=== PATIENT | female | born 1960 | race Caucasian/White ===

== ENCOUNTER 2018-07-23 15:57 | Inpatient (IN) | payer BC ==
[2018-07-23] MEDS ORDERED: Ondansetron 4 MG/2 ML SDV IVPUSH PRN (16:59)
[2018-07-23] MEDS ORDERED: Lactated Ringers 1,000 ML IV ONE (17:00)
[2018-07-23] MEDS ORDERED: MVI, Adult with Vitamin K 10 ML, Magnesium Sulfate 2 GM, Folic Acid 1 MG, Thiamine 100 ... IV ONE ×5 (18:00)
[2018-07-23] MEDS: Pantoprazole 40 MG Vial IV SCH (18:17)
[2018-07-23] MEDS: Dextrose 5%-Lactated Ringers 1,000 ML IV SCH (20:32)
[2018-07-23] MEDS ORDERED: buPROPion 150 MG Tab.SR PO SCH (21:00)
[2018-07-24] MEDS: Dextrose 5%-Lactated Ringers 1,000 ML IV SCH (06:23)
[2018-07-24] MEDS ORDERED: Escitalopram 10 MG Tab PO SCH (09:00)
[2018-07-24] MEDS: Potassium Phosphates 15 MMOLE in Sodium Chloride 0.9% 250 ML IV SCH ×2 (10:41→19:34)
--- NOTE | 2018-07-24 11:06 | PN ---
DATE OF SERVICE: 07/24/2018 SUBJECTIVE: Bernadette was admitted last evening for severe malnutrition, low albumin. She is on a step 4 gastric bypass diet. Oral intake was 500. Urine output 1550. She ate 75% of her dinner. Vital signs have been stable. Denies any pain. Labs this morning revealed a hemoglobin of 11.4, potassium is 3.5, phosphorus 3, BNP is 220, albumin 1.3, and total protein 3.8. REVIEW OF SYSTEMS: Remainder of review of systems negative for any pertinent positives and negatives. OBJECTIVE: GENERAL: Bernadette Maza is a 57-year-old female, alert, orientated, color pale. VITAL SIGNS: TPR 98, 58, 18, blood pressure 97/46. HEENT: Negative. NECK: Supple. HEART: Regular rate and rhythm. LUNGS: Clear. ABDOMEN: Soft and nontender. Midline abdominal incision noted. EXTREMITIES: Revealed 2+ peripheral edema. SCDs were not put on as ordered yesterday on admission. ASSESSMENT: 1. Severe protein-calorie malnutrition. 2. Dehydration. 3. Hypoalbuminemia due to protein-calorie malnutrition, postsurgical malabsorption not classified elsewhere. Please chronologically order these. SP Tanvir-en-Y gastric bypass surgery revision in 2013, vitamin B12 deficiency, vitamin B complex deficiency, vitamin D deficiency. 4. Depression. 5. Marked peripheral edema. PLAN: 1. Schedule and have consent signed for laparoscopic possible open, placement of percutaneous gastrostomy tube with general anesthesia and TAP block, scheduled for on 07/25/2018. Case to follow Federico Morgan MD; n.p.o. after midnight. Rx Levaquin 500 mg IV chief controller to OR. 2. Albumin 50 g IV today. 3. Wrap legs from toes to thigh with Kerlix. 4. K-Phos 45 millimoles IV. 5. Discontinue Wellbutrin. 6. Glucerna a protein supplement oral 3 times a day between meals. 7. Check CBC, CMP, mag, phos, and BNP in a.m. 8. Good pulmonary toilet. 9. N.p.o. After midnight. 10.We will evaluate p.r.n. or in a.m. Yecenia Stanton PA-C /[id number]
[2018-07-24] MEDS: Pantoprazole 40 MG Vial IV SCH (18:51)
[2018-07-24] MEDS: Escitalopram 10 MG Tab PO SCH (21:23)
[2018-07-25] MEDS: Potassium Phosphates 15 MMOLE in Sodium Chloride 0.9% 250 ML IV SCH (02:30)
[2018-07-25] MEDS: Dextrose 5%-Lactated Ringers 1,000 ML IV SCH ×3 (06:11→23:26)
--- NOTE | 2018-07-25 07:16 | PN ---
DATE OF SERVICE: 07/25/2018 SUBJECTIVE: Bernadette is n.p.o. Consents are signed for surgery. Federico Morgan MD explained surgery to the patient including possible risks and complications. Bernadette Maza verbalized understanding. REVIEW OF SYSTEMS: Negative for any new pertinent positives and negatives. Oral intake 940. Urine output 3100. She consumed 100% of breakfast, 50% of lunch and 75% of dinner. LABORATORY DATA: Hemoglobin 9.3, hematocrit 28.8, albumin 2 up from 1.3. She received 50 g of albumin IV yesterday. BNP 401 up from 220 yesterday. OBJECTIVE: GENERAL: Bernadette Maza is a 57-year-old female. VITAL SIGNS: Height is 5 feet 4 inches. Weight is 190 pounds. TPR is 97.2, 65, 16, and blood pressure 93/54. HEENT: Negative. NECK: Supple. HEART: Regular rate and rhythm. LUNGS: Clear. ABDOMEN: Negative. EXTREMITIES: Trace peripheral edema. SCDs are on. ASSESSMENT: 1. Severe protein-calorie malnutrition. 2. Dehydration, resolving. 3. Hypoalbuminemia due to protein-calorie malnutrition. Albumin 1.2 on admission. 4. Postsurgical malabsorption classified elsewhere. 5. SP Tanvir-en-Y gastric bypass surgery. 6. Revision of Tanvir-en-Y gastric bypass surgery 2013. 7. Vitamin B deficiency. 8. Vitamin B complex deficiency. 9. Vitamin D deficiency. 10.Depression. 11.Marked peripheral edema. PLAN: Orders to be written postoperatively. Yecenia Stanton PA-C /[id number]
[2018-07-25] MEDS ORDERED: Levofloxacin/Dextrose 5%-Water 500 MG in Premix Bag 1 BAG IV ONE (09:00)
[2018-07-25] MEDS ORDERED: fentaNYL 250 MCG/5 ML SDV ONE (11:09)
[2018-07-25] MEDS ORDERED: Neostigmine Methylsulfate 1 MG/ML 5 ML Syringe ONE (11:10)
[2018-07-25] MEDS ORDERED: Glycopyrrolate 0.2 MG/ML 5 ML MDV ONE (11:10)
[2018-07-25] MEDS ORDERED: Rocuronium 50 MG/5 ML Vial ONE (11:10)
[2018-07-25] MEDS ORDERED: Succinylcholine 200 MG/10 ML MDV ONE (11:10)
[2018-07-25] MEDS ORDERED: Propofol 200 MG/20 ML SDV ONE (11:10)
[2018-07-25] MEDS ORDERED: Dexamethasone 4 MG/ML SDV ONE (11:10)
[2018-07-25] MEDS ORDERED: Ondansetron 4 MG/2 ML SDV ONE (11:10)
[2018-07-25] MEDS ORDERED: Lactated Ringers 1,000 ML ONE (11:28)
[2018-07-25] MEDS ORDERED: Furosemide 20 MG/2 ML VIAL ONE (11:44)
[2018-07-25] MEDS: Pantoprazole 40 MG Vial IV SCH (18:23)
[2018-07-25] MEDS: Escitalopram 10 MG Tab PO SCH (20:07)
[2018-07-25] MEDS: Acetaminophen/HYDROcodone 325-5 MG Tab PO PRN (20:07)
[2018-07-26] MEDS ORDERED: Iohexol 647 MG/ML 50 ML SDV PO ONE (03:35)
--- NOTE | 2018-07-26 05:31 | CRLCR ---
Indication: Assess G-tube and gastric motility Technique: Two frontal views of the abdomen were obtained after administration of oral contrast material. Comparison: None Findings/Impression: : The initial image obtained at 4:50 a.m. on July 26, 2018 demonstrates a small amount of oral contrast material within a percutaneous gastrostomy tube. Contrast material is seen within the stomach. There is a nonspecific bowel gas pattern. Anastomotic suture material and surgical clips are seen within the abdomen. There is small amount of questionable free air underneath the hemidiaphragms bilaterally. There is also soft tissue air in the left lateral abdominal wall. These findings are consistent with recent postoperative state. The 2nd image obtained at 5:04 a.m. demonstrates contrast within the stomach and duodenum. There is no evidence for extravasation. These findings were discussed with Melissa Vazquez RN at 5:30 a.m. on July 26, 2018. Dictated by Beth Long MD @ Jul 26 2018 5:19AM (Electronically Signed)
[2018-07-26] MEDS ORDERED: Calcium Citrate/Vitamin D3 315 MG-250 Unit Tab PO SCH (08:00)
--- NOTE | 2018-07-26 08:11 | PN ---
DATE OF SERVICE: 07/26/2018 SUBJECTIVE: Bernadette is postoperative day 1. Pain is controlled. She has been up, ambulating. Reporting some left thigh numbness which has resolved thought to maybe be from the TAP block. Vital signs have been stable. Oral intake 450. Urine output 1350. REVIEW OF SYSTEMS: Remainder of review of systems negative for any pertinent positives and negatives. OBJECTIVE: GENERAL: Bernadette Maza is a 57-year-old female. VITAL SIGNS: TPR is 97.9, 55, 16, and blood pressure 98/51. HEENT: Negative. NECK: Supple. HEART: Regular rate and rhythm. LUNGS: Clear. ABDOMEN: Dressings dry and intact. Gastrostomy tube is to dependent drainage put out 100 mL of a light brown drainage. EXTREMITIES: Revealed trace peripheral edema. SCDs are on. ASSESSMENT: Diagnostic laparoscopy with lysis of extensive adhesions, placement of gastrostomy tube and placement of Interceed mesh for marked malnutrition and extensive intraabdominal adhesions. Date of surgery 07/25/2018. Surgeon, Federico Morgan MD. PLAN: To start gastrostomy tube feedings, Vital high-protein 20 mL per hour for 2 hours then increase to 40 mL per hour for 2 hours then 60 mL per hour until 0700 Sunday07/27/2018. Stop gastrostomy tube feedings at 07/27/2018 at 0700, then restarted at 1900 and run at 60 mL per hour until 0700. Continue 60 mL per hour to run 12 hours daily. Consult Home Health Care to set up home gastrostomy tube feedings. Schedule have consent signed for upper GI without air on 07/29/2018 at 0800. Radiology present. Albumin 25%, 50 g daily for 3 days. Restart vitamins, multivitamin with iron Children's chewable b.i.d., thiamine B1 100 p.o. bedtime. Escitalopram oxalate 5 mg p.o. at bedtime. Vitamin D3 3000 international units daily. Calcium citrate one tablet b.i.d., B12 1000 mcg IM one time, and magnesium sulfate 2 g IV q.6 hours x3 days. Good pulmonary toilet. We will evaluate p.r.n. or in a.m. Plan to discharge on Sunday or Sunday07/29/2018 or 07/30/2018. We will evaluate p.r.n. or in a.m. Yecenia Stanton PA-C /[id number]
[2018-07-26] MEDS: Magnesium Sulfate/Water 2 GM in Premix Bag 1 BAG IV SCH ×3 (08:56→22:23)
[2018-07-26] MEDS: Multivitamins with Iron Tab.Chew CHEW SCH ×2 (08:58→20:14)
[2018-07-26] MEDS ORDERED: Cyanocobalamin (Vitamin B12) 1,000 MCG/ML SDV IM ONE (09:00)
[2018-07-26] MEDS: Calcium Carbonate/Vitamin D3 1500 MG-400 Units Tab PO SCH ×2 (09:13→16:40)
[2018-07-26] MEDS: Cholecalciferol (Vitamin D3) 1,000 Unit Tab PO SCH (09:13)
[2018-07-26] MEDS: Acetaminophen/HYDROcodone 325-5 MG Tab PO PRN (14:39)
[2018-07-26] MEDS: Pantoprazole 40 MG Tab.CR PO SCH (16:40)
[2018-07-26] MEDS: Escitalopram 10 MG Tab PO SCH (20:14)
[2018-07-26] MEDS: Thiamine 100 MG Tab PO SCH (20:14)
[2018-07-26] MEDS ORDERED: Escitalopram 10 MG Tab PO SCH (21:00)
[2018-07-27] MEDS: Magnesium Sulfate/Water 2 GM in Premix Bag 1 BAG IV SCH ×4 (03:02→21:12)
[2018-07-27] MEDS: Dextrose 5%-Lactated Ringers 1,000 ML IV SCH (05:27)
--- NOTE | 2018-07-27 07:52 | PN ---
DATE OF SERVICE: 07/27/2018 SUBJECTIVE: Bernadette tolerated her gastrostomy tube feedings. She has been up to 60 and it will be discontinued now at 7 a.m. and restarted again at 7 p.m. Residual 40. She is up ambulating. Oral intake 920. Drinking 1/2 of her Ensure between meals. Her oral intake as far as meals go, she had 25% of her breakfast, 50% of lunch, and 50% of dinner. Reports pain at the left lower trocar sites. Afebrile. Remainder of review of systems negative for any pertinent positives or negatives. Labs this morning: Phosphorus 2.4, potassium 3.6, albumin is 2.1. She has 1 more day, where she is receiving IV albumin. OBJECTIVE: GENERAL: Bernadette Maza is a 57-year-old female, alert, orientated. Color pale. VITAL SIGNS: TPR 98.6, 67, 16, blood pressure 109/55. HEENT: Negative. NECK: Supple. HEART: Regular rate and rhythm. LUNGS: Clear. ABDOMEN: Trocar sites, incisions look good. Sutures in place. Gastrostomy tube intact. There is no leaking around the tube itself. Abdominal binder has been on. ASSESSMENT: Diagnostic laparoscopy with lysis of extensive adhesions, placement of gastrostomy tube, and placement of Interceed mesh for marked malnutrition and extensive intra-abdominal adhesions. Date of surgery, 07/25/2018. Surgeon, Federico Morgan MD. PLAN: 1. K-Phos 60 mmol IV today. 2. Saline lock IV. 3. May shower. 4. CBC, CMP, and phos in a.m. 5. Good pulmonary toilet. We will evaluate p.r.n. or in the a.m. Yecenia Stanton PA-C /[id number]
[2018-07-27] MEDS: Acetaminophen/HYDROcodone 325-5 MG Tab PO PRN ×3 (08:27→21:20)
[2018-07-27] MEDS: Calcium Carbonate/Vitamin D3 1500 MG-400 Units Tab PO SCH ×2 (08:27→16:37)
[2018-07-27] MEDS: Potassium Phosphates 20 MMOLE in Sodium Chloride 0.9% 250 ML IV SCH ×3 (10:10→16:38)
[2018-07-27] MEDS: Multivitamins with Iron Tab.Chew CHEW SCH ×2 (10:44→21:11)
[2018-07-27] MEDS: Cholecalciferol (Vitamin D3) 1,000 Unit Tab PO SCH (10:44)
[2018-07-27] MEDS: Pantoprazole 40 MG Tab.CR PO SCH (16:37)
[2018-07-27] MEDS: Thiamine 100 MG Tab PO SCH (21:11)
[2018-07-27] MEDS: Escitalopram 10 MG Tab PO SCH (21:11)
[2018-07-28] MEDS: Magnesium Sulfate/Water 2 GM in Premix Bag 1 BAG IV SCH ×4 (02:06→20:24)
[2018-07-28] MEDS: Acetaminophen/HYDROcodone 325-5 MG Tab PO PRN ×2 (07:39→14:01)
[2018-07-28] MEDS: Calcium Carbonate/Vitamin D3 1500 MG-400 Units Tab PO SCH ×2 (07:39→16:54)
[2018-07-28] MEDS: Multivitamins with Iron Tab.Chew CHEW SCH ×2 (08:10→20:20)
[2018-07-28] MEDS: Cholecalciferol (Vitamin D3) 1,000 Unit Tab PO SCH (08:10)
--- NOTE | 2018-07-28 09:05 | PN ---
DATE OF SERVICE: 07/28/2018 SUBJECTIVE: Bernadette tolerated her gastrostomy tube feeding yesterday. It was restarted at 7 p.m. and ran until 7 a.m. approximately and at 60 mL per hour. She states she had no pain, nausea, vomiting, or bloating. Had one small bowel movement this morning. Has remained afebrile. Oral intake 840 of liquids. She consumed 50% of breakfast, 75% of lunch and dinner. REVIEW OF SYSTEMS: Remainder of review of systems negative for any pertinent positives or negatives. OBJECTIVE: GENERAL: Bernadette Maza is a 57-year-old female. VITAL SIGNS: TPR is 97.5, 63, 16. Blood pressure 102/57. HEENT: Negative. NECK: Supple. HEART: Regular rate and rhythm. LUNGS: Clear. ABDOMEN: Gastrostomy tube in place. Pao intact. Incision is healing well. Abdominal binder is on. EXTREMITIES: Reveal trace peripheral edema. When she first went to bed, she had 2+ edema. She she currently has the SCDs on. ASSESSMENT: 1. Diagnostic laparoscopy with lysis of extensive adhesions, placement of gastrostomy tube, and placement of Interceed mesh. 2. Marked malnutrition. 3. Extensive intraabdominal adhesions. Date of surgery; 07/25/2018. Surgeon; Federico Morgan MD. PLAN: 1. Continue same gastrostomy tube feedings. 2. MiraLAX 17 g p.o. daily at noon. 3. Check CBC, CMP, phos, and BNP in a.m. 4. Plan discharge in a.m. with home gastrostomy tube feedings. Yecenia Stanton PA-C /[id number]
[2018-07-28] MEDS: Polyethylene Glycol 3350 Powder 17 GM Packet PO SCH (11:23)
[2018-07-28] MEDS: Pantoprazole 40 MG Tab.CR PO SCH (16:55)
[2018-07-28] MEDS: Thiamine 100 MG Tab PO SCH (20:20)
[2018-07-28] MEDS: Escitalopram 10 MG Tab PO SCH (20:20)
[2018-07-29] MEDS: Magnesium Sulfate/Water 2 GM in Premix Bag 1 BAG IV SCH (02:14)
[2018-07-29] MEDS: Polyethylene Glycol 3350 Powder 17 GM Packet PO SCH (08:22)
[2018-07-29] MEDS: Multivitamins with Iron Tab.Chew CHEW SCH (08:22)
[2018-07-29] MEDS: Calcium Carbonate/Vitamin D3 1500 MG-400 Units Tab PO SCH (08:22)
[2018-07-29] MEDS: Cholecalciferol (Vitamin D3) 1,000 Unit Tab PO SCH (08:22)
[2018-07-29] MEDS ORDERED: Iohexol 647 MG/ML 50 ML SDV PO PRN (10:45)
[2018-07-29] MEDS: Acetaminophen/HYDROcodone 325-5 MG Tab PO PRN (10:47)
--- NOTE | 2018-07-29 11:59 | CR ---
UGI w Small Bowel wok Air CLINICAL HISTORY: Poor diet, abdominal pain, history of gastric bypass TECHNIQUE: Upper GI and small bowel follow-through examinations were obtained utilizing water-soluble contrast by mouth. FINDINGS: Normal esophageal motility. No apparent esophageal abnormalities. No substantial hiatal hernia. Changes compatible with the patient's history of previous Tanvir-en-Y gastric bypass. Gastric pouch appears grossly unremarkable. No evidence to suggest obstruction. No apparent leakage of contrast from the anastomotic site. Contrast material flows readily into the small bowel. Small bowel is unremarkable in appearance. No evidence of stricture or obstruction. Contrast material was identified in the terminal ileum region at approximately 1 hour after commencement of the exam. IMPRESSION: Changes of Tanvir-en-Y gastric bypass without apparent obstruction or acute abnormalities.
[2018-07-29 12:28] VITALS: BP 113/62
--- NOTE | 2018-07-29 14:41 | DISCH ---
ADMISSION DIAGNOSES: 1. Severe protein-calorie malnutrition. 2. Dehydration. 3. Hypoalbuminemia due to protein-calorie malnutrition. 4. Status post Tanvir-en-Y gastric bypass surgery revision then postsurgical malabsorption not classified elsewhere. 5. B12 deficiency. 6. Vitamin B complex deficiency. 7. Vitamin D deficiency. 8. Zinc deficiency. 9. Copper deficiency. 10.Vitamin A deficiency. 11.Depression. 12.Severe peripheral edema secondary to malnutrition. DISCHARGE DIAGNOSES: Diagnostic laparoscopy with lysis of extensive adhesions, placement of gastrostomy tube and placement of Interceed mesh for marked malnutrition and extensive abdominal adhesions. Date of surgery 07/25/2018. Surgeon, Federico Morgan MD. HISTORY: Bernadette Maza is a 57-year-old female who had original lap Tanvir-en-Y gastric bypass surgery 07/22/2012 with revisional surgery on 12/05/2013. She has been unable to maintain her protein intake due to nausea and vomiting. Her albumin level on admission was 1.7 with magnesium of 1.6, total protein 3.7. After preoperative evaluation and discussion of possible risks and possible complications, she wished to proceed with surgical procedure. HOSPITAL COURSE: She was admitted on 07/24/2018, had her surgery on 07/25/2018 and she had no operative complications. On postoperative day #1, she was started on her gastrostomy tube feedings and these were gradually increased. She received them for 24 hours then on 07/27/2018, she continued with the gastrostomy tube feedings from 7 p.m. to 7 a.m., she tolerated them well. Her oral intake was marginal. She did receive protein supplements between meals and she tolerated those fairly well. She was up ambulating, had no pain. Vital signs were stable and prior to discharge, she had an upper GI with small-bowel follow- through. She was able to be discharged on 07/29/2018. LABORATORY DATA: White count 3.4, hemoglobin was 8.7, potassium 4.2. She did receive 3 doses of IV 50 g albumin and her albumin at time of discharge was 2.6, total protein was 4.6, and BNP was 567. PHYSICAL EXAMINATION: GENERAL: Bernadette Maza is a 57-year-old female. VITAL SIGNS: Height is 5 feet 3.78 inches. Weight is 199 pounds. HEENT: Negative. NECK: Supple. HEART: Regular rate and rhythm. LUNGS: Clear. ABDOMEN: Trocar incisions, ella intact. Incision is healing well. Gastrostomy tube in place. EXTREMITIES: Reveal trace peripheral edema. She has had SCDs on during the night and they were ice wrapped during the day while hospitalized. NEURO: Negative. PSYCHIATRIC: Mood and affect appropriate. FOLLOWUP: Appointment with Yecenia Stanton PA-C, on 08/05/2018 at 10:15 a.m. at [facility]. HOME MEDICATIONS: [place] 5/325 mg one q.6 hours p.r.n. pain #40. She is to take Vitron-C 1 oral twice daily and resume home medication of calcium supplements b.i.d., vitamin D3 3000 international units daily, vitamin B12 1000 mcg IM every 28 days, multivitamin chewable with iron 1 twice a day, MiraLax 17 g oral daily, thiamine 100 mg oral at bedtime and Lexapro 5 mg at bedtime. DIET: Diet is step 4 gastric bypass diet. Drink 8 to 10 glasses of water a day. No lifting more than 10 pounds for 2 weeks[address]riving, do not drive while on narcotic pain medication. Shower/bathing, may shower. DISCHARGE INSTRUCTIONS: Notify provider if any fever, increased pain, nausea, or vomiting. Keep site clean and dry. Wear abdominal binder as tolerated to keep gastrostomy tube and prevent them from getting pulled. SPECIAL INSTRUCTIONS: Use incentive spirometer 10 times every hour while awake for 1 week. Gastrostomy tube feeding 16 mL 12 hours suggested time 7 p.m. to 7 a.m. and may return to work on Sunday07/31/2018. 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
--- NOTE | 2018-07-30 11:41 | OR ---
DATE OF PROCEDURE: 07/25/2018 SURGEON: Federico Morgan MD PREOPERATIVE DIAGNOSIS: Marked malnutrition. POSTOPERATIVE DIAGNOSES: 1. Marked malnutrition. 2. Extensive intraabdominal adhesions. OPERATIVE PROCEDURE: Diagnostic laparoscopy with lysis of extensive adhesions: 1. Placement of tube gastrostomy (77525). 2. Placement of Interceed mesh to limit recurrent adhesion formation (17435). ANESTHESIA: General. GLASS SCIENCE ENGINEER: Yecenia Stanton PA-C, and BAY Mcnair. INDICATION FOR PROCEDURE: This is a 57-year-old female presenting with marked malnutrition, status post previous Tanvir-en-Y gastric bypass. Plan is to proceed with a gastrostomy tube placement. She does have a midline incision, and we will attempt to do this laparoscopically, knowing that we might need to convert to open, depending on the amount of adhesions present. Otherwise, potential risks of the procedure including bleeding, infection, dislodgement of the tube or leakage around it, or injury to underlying viscera were all reviewed, and the patient wishes to proceed. DETAILS OF PROCEDURE: The patient was taken to the operating room and placed in a supine position. After general endotracheal anesthesia was induced, she converted to a lithotomy position, and the abdomen was prepped and draped. In the left lower quadrant, a transverse incision was made and peritoneal cavity entered under direct vision with an Optiview trocar inflated to 15 mmHg pressure of CO2. Laparoscope was reinserted. No underlying trocar insertion site injuries were seen. Following this, bilateral transversus abdominis plane blocks were placed, and the patient was noted to have quite a bit in the way of adhesions between the omentum as well as transverse colon and the anterior abdominal wall. Over an extended period of time, these were taken down with Harmonic scalpel. Once these were satisfactorily taken down, we were then able to proceed with gastrostomy tube placement. The patient still had some adhesions over on the right side of the abdomen, which more or less prohibited bringing a trocar in from the right side, so three additional 5 mm trocars were placed in the left mid abdomen, one of which would serve as a gastrostomy tube site in the immediate left subcostal area. The other two worked as functioning instrument ports, and eventually the body of the stomach was identified. This was adherent to the anterior abdominal wall, but on the lower aspect, there appeared to be good location for placement of gastrostomy. Initially, an 18 Danish Valdez catheter was then placed through the left subcostal trocar site and then the gastrotomy performed in the most dependent portion of the gastric body. Around this, a pursestring stitch of 3-0 Vicryl stitch was placed, and after the gastrostomy tube had been placed and inflated with 10 mL of saline, the pursestring stitch was pulled up and tied. This stitch was then used to initially affix the stomach up against the abdominal wall. Two additional sutures between the stomach and anterior abdominal wall with 3-0 Vicryl were also then placed and some fibrin sealant placed around the area and the omentum tacked up along that as well. At that point, no further problems were noted. The patient was felt to be at high risk for additional adhesion formation. Given this, Interceed mesh was placed from the pelvic area up along the abdominal wall, to displace the viscera from the anterior pelvic and abdominal canseco to limit recurrent adhesion formation. Once this was accomplished, the trocars were removed and peritoneal cavity deflated. The fascia at the 12 mm trocar site was closed with 0 Vicryl stitch, and the skin with 4-0 Vicryl stitch. Dressing was applied. The patient was taken to the recovery room in satisfactory condition. Physician learning support assistant, Yecenia Stanton, played an essential role in assisting in this case, helping to position the patient, retract structures as needed, as well as suturing and cutting sutures when indicated. Her presence improved patient safety and decreased operative time. Federico Morgan MD /[id number]
[2018-08-23] MEDS ORDERED: Cyanocobalamin (Vitamin B12) 1,000 MCG/ML SDV IM SCH (09:00)
== END 2018-07-29 13:15 | disposition home health service (06) | DRG 951 ==
LOC: JP.MS 15:57
PROVIDERS: ADMIT Surgery; ATTEND Surgery
PROC: 0DH63UZ Insertion of Feeding Device into Stomach, Percutaneous Approach (ICD-10-PCS; principal; 2018-07-25)
PROC: 0DNW4ZZ Release Peritoneum, Percutaneous Endoscopic Approach (ICD-10-PCS; 2018-07-25)
PROC: 3E0M45Z Introduction of Adhesion Barrier into Peritoneal Cavity, Percutaneous Endoscopic Approach (ICD-10-PCS; 2018-07-25)
DX: E42 Marasmic kwashiorkor (principal); E86.0 Dehydration; R60.9 Edema, unspecified; K91.2 Postsurgical malabsorption, not elsewhere classified; Z68.31 Body mass index [BMI] 31.0-31.9, adult; Z98.84 Bariatric surgery status; Z98.0 Intestinal bypass and anastomosis status; F32.9 Major depressive disorder, single episode, unspecified; Z90.49 Acquired absence of other specified parts of digestive tract; K66.0 Peritoneal adhesions (postprocedural) (postinfection); E88.09 Other disorders of plasma-protein metabolism, not elsewhere classified; E53.8 Deficiency of other specified B group vitamins; E53.9 Vitamin B deficiency, unspecified; E55.9 Vitamin D deficiency, unspecified; E61.0 Copper deficiency; E50.9 Vitamin A deficiency, unspecified
CPT/HCPCS: 36415; 74240; 74245; 74245-26; 80053; 82607; 82728; 82746; 83735; 83880; 84100; 85025; 85027; 94762; A9270-GY; C9113; J0171; J0330; J1100; J1940; J1956; J2405; J2704; J2710; J2795; J3010; J3411; J3420; J3475; J3490; J7042; J7050; J7120; P9047; Q9967

== ENCOUNTER 2023-12-25 08:32 | Day surgery (SDC) | payer BC ==
[~2023-12-25 08:32] MED LIST: Hydrogen Peroxide 3% Top Soln 240 ML Bottle ONE
[2023-12-25] MEDS ORDERED: Sodium Chloride 0.9% 1,000 ML IV SCH (09:00)
[2023-12-25] MEDS: Lidocaine 1% 50 ML MDV ONE (10:10)
[2023-12-25] MEDS: Bupivacaine 0.5%/EPINEPHrine 1:200,000 50 ML MDV ONE (10:10)
[2023-12-25 10:34] VITALS: BP 123/53; PULSE 69
== END 2023-12-25 10:45 | disposition home or self-care (01) ==
LOC: JP.SDS 08:32
PROVIDERS: ATTEND Surgery
DX: K31.6 Fistula of stomach and duodenum (principal)
CPT/HCPCS: 43999; 99204; J2001; J3490; A9270-GY